=== PATIENT | female | born 1975 | race Caucasian/White ===

== ENCOUNTER 2016-11-26 02:06 | Emergency (ER) | payer OTHER ==
[~2016-11-26] VITALS: Ht 149.9 cm; Wt 71.0 kg
[~2016-11-26 02:06] MED LIST: FAMO-96 PO; LOPE2CAP PO; ONDA4TAB8 PO; TRAM50TA2 PO
[2016-11-26 02:10] VITALS: Ht 149.9 cm; Wt 71.0 kg
[2016-11-26] MEDS ORDERED: IBUPROFEN 600 MG TAB PO ONE (03:30)
[2016-11-26] MEDS ORDERED: PRED20TA PO (03:33)
[2016-11-26] MEDS ORDERED: SULF1TAB31 PO (03:33)
[2016-11-26] MEDS ORDERED: NAPR-260 PO (03:33)
--- NOTE | 2016-11-26 03:46 | ERD ---
ER Documentation Chief Complaint Date/Time DATE: 11/26/16 TIME: 03:34 Chief Complaint right knee pain/swelling x 4 days.. denies injury HPI 41-year-old female presents the emergency department complaining of right-sided knee pain and swelling 1 week. Patient denies any history of injury fall, twist or pop sound in the knee. Patient denies any fever, chills, or injury to skin. Patient states the pain has been intermittent and rates it an 8 out of 10 sharp pain worse with weightbearing. Patient states that she has been exercising by walking on the beach recently and using stairs at work. She denies calf swelling or redness, ankle swelling, shortness of breath, or chest pain. ROS All systems reviewed and are negative except as per history of present illness. Medications Home Meds Active Scripts Sulfamethoxazole/Trimethoprim* (Bactrim Ds* Tablet) 1 Each Tablet, 1 TAB PO BID , #14 TAB Prov:JOSELYN SANTANA PA-C 11/26/16 Prednisone* (Prednisone*) 20 Mg Tab, 40 MG PO DAILY for 4 Days, TAB Prov:JOSELYN SANTANA PA-C 11/26/16 Naproxen* (Naprosyn*) 500 Mg Tablet, 500 MG PO BID Y for PAIN AND/OR INFLAMMATION, #30 TAB Prov:JOSELYN SANTANA PA-C 11/26/16 Loperamide Hcl* (Imodium*) 2 Mg Capsule, 2 MG PO .AFTER EA LOOSE BM Y for DIARRHEA, #8 TAB Prov:MAKEDA YANG PA-C 03/30/16 Tramadol HCl (Tramadol HCl) 50 Mg Tablet, 50 MG PO Q4 Y for PAIN, #20 TAB Prov:MAKEDA YANG PA-C 03/30/16 Ondansetron Hcl* (Zofran*) 4 Mg Tablet, 4 MG PO Q6H for NAUSEA AND/OR VOMITING, #30 TAB Prov:MAKEDA YANG PA-C 03/30/16 Famotidine* (Pepcid*) 20 Mg Tablet, 20 MG PO BID for 14 Days, TAB Prov:MAKEDA YANG PA-C 03/30/16 Allergies Allergies: Coded Allergies: No Known Allergy (Unverified , 11/26/16) PMhx/Soc Medical and Surgical Hx: pt denies Medical Hx History of Surgery: Yes (hysterectomy, left knee sx 2016) Anesthesia Reaction: No Hx Neurological Disorder: No Hx Respiratory Disorders: No Hx Cardiac Disorders: No Hx Psychiatric Problems: No Hx Miscellaneous Medical Probl: Yes (endometriosis) Hx Alcohol Use: Yes (ocassional) Hx Substance Use: No Hx Tobacco Use: No Physical Exam Vitals Vital Signs Date Time Temp Pulse Resp B/P Pulse Ox O2 Delivery O2 Flow Rate FiO2 11/26/16 02:10 97.6 52 20 159/76 99 Physical Exam Const: Well-developed, well-nourished, no acute distress Head: Atraumatic Neck: Full range of motion..~ No meningismus. Resp: Clear to auscultation bilaterally Cardio: Regular rate and rhythm, no murmurs Abd: Soft, non tender, non distended. Normal bowel sounds Skin: No petechiae or rashes Back: No midline or flank tenderness Ext: Patient able to bear weight and ambulate normally. Compared to the left knee the right knee does not appear to have any obvious deformity or asymmetry. There is mild swelling overlying the anterior knee that is non- erythematous. No crepitus. No surface trauma or ecchymosis. No warmth. No tenderness to palpation over the patella. Slight tenderness over the lateral and medial joint lines superior to the patella. Full flexion and extension, patient able to do deep knee bend and perform internal and external rotation. No laxity with valgus or varus stress. Negative anterior posterior drawer test , negative Jami test. No evidence of injury swelling or ecchymosis to back , hip, ankle, and foot. No cyanosis Neur: Awake and alert Psych: Normal Mood and Affect Results 24 hrs Current Medications Medications (Trade) Dose Ordered Sig/Magda Route PRN Reason Start Time Stop Time Status Last Admin Dose Admin Ibuprofen (Motrin) 600 mg ONCE ONCE PO 11/26/16 03:30 11/26/16 03:32 DC Procedures/MDM This is a 41-year-old female who presents with nontraumatic right knee swelling with pain. Physical exam unremarkable aside from minor effusion over the knee. No obvious ligamentous laxity is present. Patient able to bear weight and ambulate. No major erythema or ecchymosis. no calf swelling or erythema. No shortness of breath or hypoxia. History and physical consistent with bursitis versus meniscal tear. Patient however notes history of meniscal tear on the left knee and states dissimilar symptoms. The joint is non-erythematous and patient afebrile. At this time low suspicion for septic joint however I will be supplying the patient with antibiotics for possible infected bursitis. I recommended rest, ice, and elevation as well as anti-inflammatory medication. Patient denied anti-inflammatory medication and crutches while in the emergency department as she states she already has these at home. The knee was Dariel bandaged and given strict return precautions. I recommended for the patient to follow-up with an employee training specialist if symptoms do not begin to improve that she may obtain an MRI for further evaluation. Based on patient's history of present illness and physical examination the decision was made to discharge. The patient was re-evaluated after ED treatment and stabilizing measures, and symptoms have improved. There is no evidence of life threatening injuries or illnesses at this time. On re-examination, patient resting in no distress, stable vital signs, reports feeling better and safe for discharge with outpatient follow up with PMD in 1-2 days. Patient given return precautions. Departure Diagnosis: Primary Impression: Bursitis Bursitis location: knee Knee bursitis location: unspecified Laterality: right Qualified Code: M70.51 - Bursitis of right knee, unspecified bursa Additional Impressions: Knee swelling Knee pain Laterality: right Chronicity: acute Qualified Code: M25.561 - Acute pain of right knee Condition: Good Patient Instructions: Bursitis Additional Instructions: Call your primary care doctor TOMORROW for an appointment during the next 1-2 days.See the doctor sooner or return here if your condition worsens before your appointment time. JOSELYN SANTANA PA-C Nov 26, 2016 03:45
== END 2016-11-26 03:55 | disposition home or self-care (01) ==
LOC: FTE 02:06
DX: M70.51 Other bursitis of knee, right knee (principal); R22.41 Localized swelling, mass and lump, right lower limb; Y93.9 Activity, unspecified
CPT/HCPCS: 99284

== ENCOUNTER 2017-08-30 21:42 | Emergency (ER) | END 2017-08-31 03:53 | disposition home or self-care (01) ==

== ENCOUNTER 2018-09-16 20:29 | Emergency (ER) | payer OTHER ==
[~2018-09-16] VITALS: Ht 154.9 cm; Wt 74.8 kg
[~2018-09-16 20:29] MED LIST changes: +IBUP-1542 PO; +NAPR-985 PO; +PRED20TA PO; +SULF1TAB31 PO
[2018-09-16 20:31] VITALS: Ht 154.9 cm; Wt 74.8 kg
[2018-09-16] MEDS ORDERED: SOD CHLORIDE 0.9% 500 ML IV STA (23:16)
[2018-09-16] MEDS ORDERED: KETOROLAC 60 MG INJ IM STA (23:23)
[2018-09-17] MEDS ORDERED: ACET-141 PO (01:44)
[2018-09-17] MEDS ORDERED: IBUP100T3 PO (01:44)
--- NOTE | 2018-09-17 02:15 | ERD ---
ER Documentation Chief Complaint Chief Complaint RLQ-ABD PAIN, NO OTHER S/S X1.5WKS HPI Is a 43-year-old female comes in with points of right hip pain that radiates down her leg started about 5 days ago. 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 She denies any fevers chills nausea vomiting. Denies any flank pain. Denies any dysuria. Denies any other current complaints. Pain is reproducible to the touch to the patient. ROS All systems reviewed and are negative except as per history of present illness. Medications Home Meds Reported Medications Acetaminophen* (Acetaminophen*) 500 MG Extra Strength Tablet, 500 MG PO Q4H PRN for PAIN AND OR ELEVATED TEMP, TAB 09/17/18 Ibuprofen* (Ibuprofen*) 100 Mg Tab.chew, 200 MG PO Q6 PRN for PAIN LEVEL 1-3, TAB.CHEW 09/17/18 Discontinued Scripts Ibuprofen* (Motrin*) 600 Mg Tab, 600 MG PO Q6, #30 TAB Prov:LÁZARO MONAHAN PA-C 08/31/17 Sulfamethoxazole/Trimethoprim* (Bactrim Ds* Tablet) 1 Each Tablet, 1 TAB PO BID, #14 TAB Prov:JOSELYN SANTANA PA-C 11/26/16 Prednisone* (Prednisone*) 20 Mg Tab, 40 MG PO DAILY for 4 Days, TAB Prov:JOSELYN SANTANA PA-C 11/26/16 Naproxen* (Naprosyn*) 500 Mg Tablet, 500 MG PO BID PRN for PAIN AND/OR INFLAMMATION, #30 TAB Prov:JOSELYN SANTANA PA-C 11/26/16 Loperamide Hcl* (Imodium*) 2 Mg Capsule, 2 MG PO .AFTER EA LOOSE BM PRN for DIARRHEA, #8 TAB Prov:MAKEDA YANG PA-C 03/30/16 Tramadol HCl (Tramadol HCl) 50 Mg Tablet, 50 MG PO Q4 PRN for PAIN, #20 TAB Prov:MAKEDA YANG PA-C 03/30/16 Ondansetron Hcl* (Zofran*) 4 Mg Tablet, 4 MG PO Q6H for NAUSEA AND/OR VOMITING, #30 TAB Prov:MAKEDA YANG PA-C 03/30/16 Famotidine* (Pepcid*) 20 Mg Tablet, 20 MG PO BID for 14 Days, TAB Prov:MAKEDA YANG Haley RUIZ 03/30/16 Allergies Allergies: Coded Allergies: No Known Allergy (Unverified , 11/26/16) PMhx/Soc History of Surgery: Yes (hysterectomy, left knee sx 2016) Anesthesia Reaction: No Hx Neurological Disorder: No Hx Respiratory Disorders: No Hx Cardiac Disorders: No Hx Psychiatric Problems: No Hx Miscellaneous Medical Probl: Yes (endometriosis) Hx Alcohol Use: Yes (ocassional) Hx Substance Use: No Hx Tobacco Use: No Smoking Status: Never smoker Physical Exam Vitals Vital Signs Date Temp Pulse Resp B/P (MAP) Pulse Ox O2 O2 Flow FiO2 Time Delivery Rate 09/16/18 97.2 61 18 115/58 98 20:31 (77) Physical Exam Const: No acute distress Head: Atraumatic Eyes: Normal Conjunctiva ENT: Normal External Ears, Nose and Mouth. Neck: Full range of motion. No meningismus. Resp: Clear to auscultation bilaterally Cardio: Regular rate and rhythm, no murmurs Abd: Soft, non tender, non distended. Normal bowel sounds Skin: No petechiae or rashes Back: No midline or flank tenderness Ext: No cyanosis, or edema Neur: Awake and alert Psych: Normal Mood and Affect Results 24 hrs Current Medications Medications Dose Sig/Magda Start Time Status Last (Trade) Ordered Route PRN Stop Time Admin Dose Reason Admin Sodium 500 ml @ Q1H STAT 09/16/18 DC Chloride 500 mls/hr IV 23:16 09/16/18 23:24 Ketorolac 60 mg ONCE STAT 09/16/18 DC 09/17/18 Tromethamine IM 23:23 09/16/18 00:34 (Toradol) 23:25 Procedures/MDM X-ray Hip 2V Interpreted by me: Bones: [No fracture] Joints: [No dislocation] Foreign body: [None] Medical decision making:'s a 43-year-old female comes in with complaints of hip strain. At this point is clinically stable for outpatient management. No evidence of fracture. Full range of motion. Pain is been treated here and she feels much better. Patient will be discharged home. Departure Diagnosis: Primary Impression: Hip strain Encounter type: initial encounter Laterality: unspecified laterality Qualified Codes: S76.019A - Strain of muscle, fascia and tendon of unspecified hip, initial encounter Condition: Stable MEGHAN SILVA Sep 17, 2018 02:15
[2018-09-17] MEDS ORDERED: CYCL10TA7 PO (02:30)
[2018-09-17] MEDS ORDERED: TRAM50TA2 PO (02:30)
[2018-09-17 02:44] VITALS: BP 112/75; PULSE 46; RESP 17
== END 2018-09-17 03:04 | disposition home or self-care (01) ==
LOC: E/R 20:29
DX: S76.011A Strain of muscle, fascia and tendon of right hip, initial encounter (principal); X58.XXXA Exposure to other specified factors, initial encounter; Y92.9 Unspecified place or not applicable
CPT/HCPCS: 73510; 96372; 99284; J1885; J7040